=== PATIENT | female | born 1955 | race Caucasian/White ===

== ENCOUNTER → 2017-04-07 | Outpatient (CLI) | payer OTHER ==
[~2017-04-07] MED LIST: FAMO40TA61 PO; FLUT9.9S NAS
[2017-04-07 14:08] LABS: BLOOD UREA NITROGEN 16 mg/dL (7-18)
[2017-04-07 14:34] LABS: ASPARTATE AMINO TRANSFERASE 20 U/L (15-37); TOTAL IRON BINDING CAPACITY 307 mcg/dL (250-450); TRANSFERRIN 269 mg/dL (200-360)
[2017-04-08 14:25] LABS: PATH.CAST-FLAG NOT PRESENT; SPERM-FLAG NOT PRESENT; SRC-FLAG NOT PRESENT; XTAL-FLAG NOT PRESENT; YLC-FLAG NOT PRESENT
== END | disposition home or self-care (01) ==
LOC: LAB 13:40
PROVIDERS: ATTEND Nurse Practitioner Primary Care
DX: Z13.220 Encounter for screening for lipoid disorders (principal); R53.83 Other fatigue; E55.9 Vitamin D deficiency, unspecified; R01.1 Cardiac murmur, unspecified; R82.90 Unspecified abnormal findings in urine; R79.9 Abnormal finding of blood chemistry, unspecified
CPT/HCPCS: 36415; 80053; 80061; 81001; 82043; 82306; 82607; 82728; 82746; 83036; 83540; 83550; 84425; 84443; 84466; 85025

== ENCOUNTER 2017-05-20 16:59 | Emergency (ER) | payer OTHER ==
[~2017-05-20] VITALS: Ht 165.1 cm; Wt 69.1 kg
[2017-05-20 18:07] LABS: HEMATOCRIT 40.1 % (34.6-47.8); HEMOGLOBIN 13.4 g/dL (11.7-16.4); WHITE BLOOD COUNT 5.7 x10^3/uL (3.4-10)
[2017-05-20 18:18] LABS: BLOOD UREA NITROGEN 16 mg/dL (7-18)
[2017-05-20 18:23] LABS: IS PT STATUS REG ER OR PRE ER? YES
[2017-05-20 20:00] VITALS: BP 139/73
== END 2017-05-20 20:02 | disposition home or self-care (01) ==
LOC: ED 18:11
DX: J45.31 Mild persistent asthma with (acute) exacerbation (principal); K21.9 Gastro-esophageal reflux disease without esophagitis; Z88.5 Allergy status to narcotic agent; Z88.8 Allergy status to other drugs, medicaments and biological substances
CPT/HCPCS: 36415; 71010; 80048; 82040; 84484; 85025; 93005; 99285; J7512

== ENCOUNTER → 2017-11-11 | Outpatient (CLI) | payer OTHER ==
[2017-11-11 12:42] LABS: MICROSCOPIC AUTO
[2017-11-11 12:47] LABS: CULTURE INDICATED? NO
[2017-11-11 12:55] LABS: ALANINE AMINOTRANSFERASE 23 U/L (12-78); ALBUMIN 3.6 g/dL (3.4-5.0); ANION GAP 9 mmol/L (5-15); CALCIUM 8.2 mg/dL (8.5-10.1); CHLORIDE 106 mmol/L (98-107); CREATININE 0.86 mg/dL (0.55-1.02)
[2017-11-11 12:57] LABS: ALKALINE PHOSPHATASE 83 U/L (45-117); BILIRUBIN,TOTAL 0.3 mg/dL (0.2-1.0); TOTAL PROTEIN 7.7 g/dL (6.4-8.2)
== END | disposition home or self-care (01) ==
LOC: LAB 12:21
PROVIDERS: ATTEND Nurse Practitioner Primary Care
DX: E55.9 Vitamin D deficiency, unspecified (principal); R53.83 Other fatigue; R82.90 Unspecified abnormal findings in urine; R79.9 Abnormal finding of blood chemistry, unspecified; R01.1 Cardiac murmur, unspecified; E88.81 Metabolic syndrome and other insulin resistance; H91.90 Unspecified hearing loss, unspecified ear; F51.01 Primary insomnia; F06.4 Anxiety disorder due to known physiological condition; H61.23 Impacted cerumen, bilateral; Z79.899 Other long term (current) drug therapy
CPT/HCPCS: 36415; 80053; 81001; 82306; 83516

== ENCOUNTER → 2017-11-21 | Outpatient (CLI) | payer OTHER | END | disposition home or self-care (01) | LOC: CFH 12:36 | PROVIDERS: ATTEND Nurse Practitioner Primary Care | DX: Z12.31 Encounter for screening mammogram for malignant neoplasm of breast (principal); Z80.3 Family history of malignant neoplasm of breast | CPT/HCPCS: 77067 ==

== ENCOUNTER → 2018-04-10 | Outpatient (CLI) | payer OTHER | LOC: CFH 10:42 | PROVIDERS: ATTEND Nurse Practitioner Primary Care | DX: Z13.820 Encounter for screening for osteoporosis (principal); I35.1 Nonrheumatic aortic (valve) insufficiency; Z78.0 Asymptomatic menopausal state | CPT/HCPCS: 77080; 93306 ==

== ENCOUNTER → 2018-05-10 | Outpatient (CLI) | payer OTHER | END | disposition home or self-care (01) | LOC: RAD 10:53 | PROVIDERS: ATTEND Internal Medicine | DX: R79.9 Abnormal finding of blood chemistry, unspecified (principal); E83.52 Hypercalcemia; E78.2 Mixed hyperlipidemia; K21.9 Gastro-esophageal reflux disease without esophagitis; Z79.899 Other long term (current) drug therapy | CPT/HCPCS: 78070; A9500 ==

== ENCOUNTER → 2018-07-07 | Outpatient (CLI) | payer OTHER ==
[2018-07-07 10:27] LABS: ALBUMIN 3.7 g/dL (3.4-5.0); ANION GAP 7 mmol/L (5-15); CHLORIDE 107 mmol/L (98-107)
[2018-07-07 10:30] LABS: ALANINE AMINOTRANSFERASE 21 U/L (12-78); ALKALINE PHOSPHATASE 92 U/L (45-117); BILIRUBIN,TOTAL 0.4 mg/dL (0.2-1.0); CHOL/HDL RATIO 3.7; CHOLESTEROL, TOTAL 190 mg/dL (140-239); CREATININE 0.76 mg/dL (0.55-1.02); HDL CHOL % 27 % (28-40); HDL CHOLESTEROL (DIRECT) 52 mg/dL (40-60); LDL CHOLESTEROL,CALCULATED 109 mg/dL (54-169); LDL/HDL RATIO 2.1 (0.5-3.0); TOTAL PROTEIN 7.6 g/dL (6.4-8.2); TRIGLYCERIDES 147 mg/dL (50-200); VLDL CHOLESTEROL 29 mg/dL (0-25)
[2018-07-07 10:48] LABS: MICROSCOPIC INDICATED
[2018-07-07 10:59] LABS: CULTURE INDICATED? NO
[2018-07-07 11:18] LABS: HEMOGLOBIN A1C 5.6 % (4.2-6.3)
== END | disposition home or self-care (01) ==
LOC: LAB 09:39
PROVIDERS: ATTEND Internal Medicine
DX: Z00.01 Encounter for general adult medical examination with abnormal findings (principal); Z13.220 Encounter for screening for lipoid disorders; K21.9 Gastro-esophageal reflux disease without esophagitis; R53.83 Other fatigue; E55.9 Vitamin D deficiency, unspecified; R82.90 Unspecified abnormal findings in urine; R79.9 Abnormal finding of blood chemistry, unspecified; E88.81 Metabolic syndrome and other insulin resistance; E78.2 Mixed hyperlipidemia; R01.1 Cardiac murmur, unspecified; F06.4 Anxiety disorder due to known physiological condition; F51.01 Primary insomnia; Z79.899 Other long term (current) drug therapy
CPT/HCPCS: 36415; 80053; 80061; 81001; 82306; 83036; 83970; 84100

== ENCOUNTER 2018-08-23 20:23 | Emergency (ER) | payer OTHER ==
[~2018-08-23] VITALS: Ht 165.1 cm; Wt 65.9 kg
[2018-08-23] MEDS ORDERED: METOCLOPRAMIDE 5 MG/ML, 2ML ONE (20:53)
[2018-08-23] MEDS ORDERED: ONDANSETRON 2MG/ML, 2ML ONE (20:53)
[2018-08-23] MEDS ORDERED: FAMOTIDINE 20 MG/2 ML ONE (20:54)
[2018-08-23 20:57] LABS: BASOPHILS # (AUTO) 0.06 x10^3/uL (0-0.1); BASOPHILS % (AUTO) 1 % (0-1); EOSINOPHILS # (AUTO) 0.05 x10^3/uL (0-0.4); EOSINOPHILS % (AUTO) 1 % (1-7); LYMPHOCYTES # (AUTO) 1.96 x10^3/uL (1-3.4); LYMPHOCYTES % (AUTO) 33 % (22-44); MD NO; MEAN CORPUSCULAR HEMOGLOBIN 30.1 pg (27.0-34.8); MEAN CORPUSCULAR HGB CONC 33.2 g/dL (32.4-35.8); MEAN CORPUSCULAR VOLUME 90.8 fL (80-100); MEAN PLATELET VOLUME 7.3 fL (7.4-10.4); MONOCYTES # (AUTO) 0.26 x10^3/uL (0.2-0.8); MONOCYTES % (AUTO) 4 % (2-9); NEUTROPHILS # (AUTO) 3.59 x10^3/uL (1.8-6.8); NEUTROPHILS % (AUTO) 61 % (42-75); PLATELET COUNT 280 x10^3/uL (130-400); RED BLOOD COUNT 4.44 x10^6/uL (3.82-5.3); RED CELL DISTRIBUTION WIDTH 12.3 % (9.6-15.2)
[2018-08-23] MEDS ORDERED: ONDANSETRON 2MG/ML, 2ML IVPush ONE (21:00)
[2018-08-23] MEDS ORDERED: METOCLOPRAMIDE 5 MG/ML, 2ML IVPush ONE (21:00)
[2018-08-23] MEDS ORDERED: SODIUM CHLORIDE 0.9% 1,000ML IVBOLUS ONE (21:00)
[2018-08-23] MEDS ORDERED: FAMOTIDINE 20 MG/2 ML IVP ONE (21:00)
[2018-08-23 21:08] LABS: ALBUMIN 3.5 g/dL (3.4-5.0); ANION GAP 12 mmol/L (5-15); CALCIUM 8.3 mg/dL (8.5-10.1); CHLORIDE 110 mmol/L (98-107)
[2018-08-23 21:15] LABS: ALANINE AMINOTRANSFERASE 28 U/L (12-78); ALKALINE PHOSPHATASE 81 U/L (45-117); BILIRUBIN,TOTAL 0.3 mg/dL (0.2-1.0); CREATININE 0.82 mg/dL (0.55-1.02); TOTAL PROTEIN 7.4 g/dL (6.4-8.2); TROPONIN I < 0.015 ng/mL (0.000-0.045)
[2018-08-23] MEDS ORDERED: FENTANYL PF 100 MCG/2ML IVPush PRN (21:30)
[2018-08-23] MEDS ORDERED: FENTANYL PF 100 MCG/2ML ONE (21:51)
[2018-08-23] MEDS ORDERED: SODIUM CHLORIDE FLUSH 10ML SYR IVF ONE (22:00)
[2018-08-23 22:05] VITALS: BP 120/72
[2018-08-23 22:24] LABS: MICROSCOPIC AUTO
[2018-08-23 22:32] LABS: CULTURE INDICATED? NO
[2018-08-24] MEDS ORDERED: OMNIPAQUE 350 MG/ML, 100ML BOTTLE ONE (06:06)
== END 2018-08-23 22:56 | disposition home or self-care (01) ==
LOC: ED 20:33
DX: K29.20 Alcoholic gastritis without bleeding (principal); K21.9 Gastro-esophageal reflux disease without esophagitis; F41.1 Generalized anxiety disorder; F10.10 Alcohol abuse, uncomplicated; J45.909 Unspecified asthma, uncomplicated; Z88.8 Allergy status to other drugs, medicaments and biological substances; Z88.5 Allergy status to narcotic agent; Z88.6 Allergy status to analgesic agent; Y90.9 Presence of alcohol in blood, level not specified
CPT/HCPCS: 36415; 74177; 80053; 80307; 81001; 83690; 84484; 85025; 86677; 93005; 96374; 96375; 99284; J2405; J2765; J3010; J3490; J7030; Q9967

== ENCOUNTER → 2019-02-01 | Outpatient (CLI) | payer MEDICARE ==
[2019-02-01 10:08] LABS: BASOPHILS # (AUTO) 0.06 x10^3/uL (0-0.1); BASOPHILS % (AUTO) 1 % (0-1); EOSINOPHILS % (AUTO) 2 % (1-7); LYMPHOCYTES # (AUTO) 1.75 x10^3/uL (1-3.4); LYMPHOCYTES % (AUTO) 33 % (22-44); MD NO; MEAN CORPUSCULAR HEMOGLOBIN 29.7 pg (27.0-34.8); MEAN CORPUSCULAR HGB CONC 32.9 g/dL (32.4-35.8); MEAN CORPUSCULAR VOLUME 90.3 fL (80-100); MEAN PLATELET VOLUME 7.3 fL (7.4-10.4); MONOCYTES # (AUTO) 0.35 x10^3/uL (0.2-0.8); MONOCYTES % (AUTO) 7 % (2-9); NEUTROPHILS # (AUTO) 3.09 x10^3/uL (1.8-6.8); NEUTROPHILS % (AUTO) 58 % (42-75); PLATELET COUNT 311 x10^3/uL (130-400); RED BLOOD COUNT 4.49 x10^6/uL (3.82-5.3); RED CELL DISTRIBUTION WIDTH 12.4 % (9.6-15.2)
[2019-02-01 10:22] LABS: ALBUMIN 3.6 g/dL (3.4-5.0); ANION GAP 7 mmol/L (5-15); CHLORIDE 109 mmol/L (98-107); CHOLESTEROL, TOTAL 199 mg/dL (140-239); TRIGLYCERIDES 240 mg/dL (50-200); VLDL CHOLESTEROL 48 mg/dL (0-25)
[2019-02-01 10:47] LABS: ALANINE AMINOTRANSFERASE 22 U/L (12-78); ALKALINE PHOSPHATASE 93 U/L (45-117); BILIRUBIN,TOTAL 0.3 mg/dL (0.2-1.0); CHOL/HDL RATIO 4.2; CREATININE 0.88 mg/dL (0.55-1.02); FREE T4 (FREE THYROXINE) 1.23 ng/dL (0.76-1.46); HDL CHOL % 24 % (28-40); HDL CHOLESTEROL (DIRECT) 47 mg/dL (40-60); LDL CHOLESTEROL,CALCULATED 104 mg/dL (54-169); LDL/HDL RATIO 2.2 (0.5-3.0); TOTAL PROTEIN 7.5 g/dL (6.4-8.2)
[2019-02-01 10:48] LABS: FOLATE LEVEL > 20.0 ng/mL (3.1-17.5)
[2019-02-01 11:16] LABS: MICROSCOPIC AUTO
[2019-02-01 11:21] LABS: CULTURE INDICATED? NO
[2019-02-01 12:05] LABS: HEMOGLOBIN A1C 5.7 % (4.2-6.3)
== END | disposition home or self-care (01) ==
LOC: LAB 09:51
PROVIDERS: ATTEND Nurse Practitioner Primary Care
DX: Z13.220 Encounter for screening for lipoid disorders (principal); R53.83 Other fatigue; E55.9 Vitamin D deficiency, unspecified; R79.9 Abnormal finding of blood chemistry, unspecified; E88.81 Metabolic syndrome and other insulin resistance; E78.2 Mixed hyperlipidemia; R01.1 Cardiac murmur, unspecified; F06.4 Anxiety disorder due to known physiological condition; F51.01 Primary insomnia; K21.9 Gastro-esophageal reflux disease without esophagitis; Z79.899 Other long term (current) drug therapy
CPT/HCPCS: 36415; 80053; 80061; 81001; 82306; 82607; 82746; 83036; 84207; 84425; 84439; 84443; 84481; 85025

== ENCOUNTER 2019-02-10 15:01 | Emergency (ER) | payer MEDICARE ==
[~2019-02-10] VITALS: Ht 165.1 cm; Wt 68.0 kg
[2019-02-10 15:03] VITALS: BP 150/78
[2019-02-10 15:42] LABS: MICROSCOPIC INDICATED
--- NOTE | 2019-02-10 15:50 | NUR ---
RIGHT SIDED ABDOMINAL PAIN FOR FIVE DAYS, DULL IN NATURE WITH INTERMITENT SHARP PAIN.
[2019-02-10 15:57] LABS: CULTURE INDICATED? NO
[2019-02-10 16:11] LABS: BASOPHILS # (AUTO) 0.04 x10^3/uL (0-0.1); BASOPHILS % (AUTO) 1 % (0-1); EOSINOPHILS # (AUTO) 0.15 x10^3/uL (0-0.4); EOSINOPHILS % (AUTO) 3 % (1-7); LYMPHOCYTES # (AUTO) 1.74 x10^3/uL (1-3.4); LYMPHOCYTES % (AUTO) 36 % (22-44); MD NO; MEAN CORPUSCULAR HEMOGLOBIN 30.1 pg (27.0-34.8); MEAN CORPUSCULAR HGB CONC 33.4 g/dL (32.4-35.8); MEAN CORPUSCULAR VOLUME 90.3 fL (80-100); MEAN PLATELET VOLUME 7.7 fL (7.4-10.4); MONOCYTES # (AUTO) 0.35 x10^3/uL (0.2-0.8); MONOCYTES % (AUTO) 7 % (2-9); NEUTROPHILS # (AUTO) 2.59 x10^3/uL (1.8-6.8); NEUTROPHILS % (AUTO) 53 % (42-75); PLATELET COUNT 255 x10^3/uL (130-400); RED BLOOD COUNT 4.36 x10^6/uL (3.82-5.3); RED CELL DISTRIBUTION WIDTH 12.7 % (9.6-15.2)
[2019-02-10 16:15] LABS: ALANINE AMINOTRANSFERASE 20 U/L (12-78); ALBUMIN 3.5 g/dL (3.4-5.0); ANION GAP 6 mmol/L (5-15); CALCIUM 8.9 mg/dL (8.5-10.1); CHLORIDE 113 mmol/L (98-107)
[2019-02-10 16:17] LABS: ALKALINE PHOSPHATASE 88 U/L (45-117); BILIRUBIN,TOTAL 0.4 mg/dL (0.2-1.0)
--- NOTE | 2019-02-10 16:45 | NUR ---
VISTING WITH , NO DISTRESS
--- NOTE | 2019-02-10 17:50 | NUR ---
AMBULATED TO DISCHARGE WINDOW, STEADY GAIT
== END 2019-02-10 17:52 | disposition home or self-care (01) ==
LOC: ED 16:19
DX: R10.11 Right upper quadrant pain (principal); K21.9 Gastro-esophageal reflux disease without esophagitis; J45.909 Unspecified asthma, uncomplicated; Z90.49 Acquired absence of other specified parts of digestive tract
CPT/HCPCS: 36415; 74177; 80053; 81001; 83690; 85025; 93005; 99284

== ENCOUNTER 2019-07-25 19:51 | Observation (INO) | payer MEDICARE ==
[~2019-07-25] VITALS: Ht 165.1 cm; Wt 63.8 kg
[2019-07-25 20:26] LABS: BASOPHILS # (AUTO) 0.05 x10^3/uL (0-0.1); BASOPHILS % (AUTO) 1 % (0-1); EOSINOPHILS # (AUTO) 0.19 x10^3/uL (0-0.4); EOSINOPHILS % (AUTO) 2 % (1-7); LYMPHOCYTES # (AUTO) 3.59 x10^3/uL (1-3.4); LYMPHOCYTES % (AUTO) 41 % (22-44); MD NO; MEAN CORPUSCULAR HEMOGLOBIN 30.5 pg (27.0-34.8); MEAN CORPUSCULAR HGB CONC 33.1 g/dL (32.4-35.8); MEAN CORPUSCULAR VOLUME 92.3 fL (80-100); MEAN PLATELET VOLUME 7.2 fL (7.4-10.4); MONOCYTES # (AUTO) 0.63 x10^3/uL (0.2-0.8); MONOCYTES % (AUTO) 7 % (2-9); NEUTROPHILS # (AUTO) 4.36 x10^3/uL (1.8-6.8); NEUTROPHILS % (AUTO) 49 % (42-75); PLATELET COUNT 331 x10^3/uL (130-400); RED BLOOD COUNT 4.45 x10^6/uL (3.82-5.3); RED CELL DISTRIBUTION WIDTH 11.9 % (9.6-15.2)
[2019-07-25 20:34] LABS: ALBUMIN 3.4 g/dL (3.4-5.0); ANION GAP 7 mmol/L (5-15); CALCIUM 9.2 mg/dL (8.5-10.1); CHLORIDE 103 mmol/L (98-107); CREATININE 1.01 mg/dL (0.55-1.02)
[2019-07-25] MEDS ORDERED: ALBU8.5H8 INH (20:35)
[2019-07-25] MEDS ORDERED: SUCR1TAB33 PO (20:35)
[2019-07-25 20:39] LABS: TROPONIN I < 0.015 ng/mL (0.000-0.045)
[2019-07-25] MEDS ORDERED: MAALOX/HYOSCYAMINE/LIDOCAINE 45 ML BTL PO ONE (21:30)
[2019-07-25] MEDS ORDERED: ACETAMINOPHEN 500 MG TABLET PO ONE (21:30)
[2019-07-25] MEDS ORDERED: MAALOX/HYOSCYAMINE/LIDOCAINE 45 ML BTL ONE (21:38)
[2019-07-25 21:49] LABS: ALBUMIN 3.4 g/dL (3.4-5.0); BILIRUBIN, DIRECT 0.1 mg/dL (0.1-0.2)
[2019-07-25 21:51] LABS: BILIRUBIN,INDIRECT 0.2 mg/dL (0.0-2.0); BILIRUBIN,TOTAL 0.3 mg/dL (0.2-1.0)
--- NOTE | 2019-07-25 22:02 | NUR ---
PT ABLE TO PROVIDE URINE SAMPLE. URINE SENT TO LAB. IV STARTED, PT ON CARDIAC AND VITALS MONITORS
--- NOTE | 2019-07-25 22:05 | NUR ---
PT TO CT
[2019-07-25] MEDS ORDERED: OMNIPAQUE 350 MG/ML, 100ML BOTTLE ONE (22:16)
[2019-07-25 22:39] LABS: MICROSCOPIC INDICATED
[2019-07-25 23:11] LABS: CULTURE INDICATED? NO
--- NOTE | 2019-07-25 23:55 | NUR ---
REPORT TO ROCIO ARMSTRONG
[2019-07-26] VITALS (7 sets, daily range): BP systolic 104–146; BP diastolic 57–79
[2019-07-26] MEDS ORDERED: OMEG-133 PO (00:45)
[2019-07-26] MEDS ORDERED: MAGN100C2 PO (00:47)
[2019-07-26] MEDS ORDERED: ASCO500C10 PO (00:47)
[2019-07-26] MEDS ORDERED: MAGN100C2 PEG (01:20)
[2019-07-26] MEDS ORDERED: MULT-658 PO (01:20)
[2019-07-26] MEDS ORDERED: CRAN1CAP12 PO (01:20)
[2019-07-26] MEDS ORDERED: ENALAPRILAT 1.25 MG/ML, 2ML IVPush PRN (01:30)
[2019-07-26] MEDS ORDERED: DOCUSATE 100 MG CAPSULE PO PRN (01:30)
[2019-07-26] MEDS ORDERED: ONDANSETRON 2MG/ML, 2ML IVPush PRN (01:30)
[2019-07-26] MEDS ORDERED: ALBUTEROL SULFATE INH PRN (01:30)
[2019-07-26] MEDS: TEMAZEPAM 15 MG CAPSULE PO PRN ×2 (01:34→22:35)
[2019-07-26] MEDS: LIDODERM 5% PATCH TD PRN (01:36)
[2019-07-26] MEDS: ENOXAPARIN 40 MG/0.4 ML SQ SCH (01:49)
[2019-07-26] MEDS ORDERED: NITROGLYCERIN 0.4 MG BOTTLE (25 TABS) SL PRN (02:00)
[2019-07-26 04:47] LABS: TROPONIN I < 0.015 ng/mL (0.000-0.045)
[2019-07-26] MEDS: MAGNESIUM OXIDE 400 MG TABLET PO SCH (08:28)
[2019-07-26] MEDS: ACETAMINOPHEN 325 MG TABLET PO PRN ×2 (08:28→12:51)
[2019-07-26] MEDS: FLUTICASONE NASAL SPRAY 16GM NAS SCH (08:28)
[2019-07-26] MEDS: ASCORBIC ACID 500 MG TABLET PO SCH (08:29)
[2019-07-26] MEDS: OMEGA-3/FISH OIL CAPSULE PO SCH (08:29)
[2019-07-26] MEDS ORDERED: SUCRALFATE 1 GM TABLET PO SCH (09:00)
[2019-07-26] MEDS ORDERED: REGADENOSON 0.4 MG/5 ML SYRINGE ONE (09:01)
[2019-07-26 10:40] LABS: TROPONIN I < 0.015 ng/mL (0.000-0.045)
[2019-07-26 15:16] LABS: ANION GAP 7 mmol/L (5-15); CALCIUM 9.2 mg/dL (8.5-10.1); CHLORIDE 109 mmol/L (98-107)
[2019-07-26] MEDS: SUCRALFATE 1 GM TABLET PO SCH (22:35)
[2019-07-26] MEDS: BENZONATATE 100 MG CAPSULE PO PRN (22:42)
[2019-07-27 01:57] VITALS: BP 102/67
[2019-07-27] MEDS: ENOXAPARIN 40 MG/0.4 ML SQ SCH (02:36)
[2019-07-27 04:07] LABS: BASOPHILS # (AUTO) 0.07 x10^3/uL (0-0.1); BASOPHILS % (AUTO) 1 % (0-1); EOSINOPHILS % (AUTO) 4 % (1-7); LYMPHOCYTES # (AUTO) 2.32 x10^3/uL (1-3.4); LYMPHOCYTES % (AUTO) 34 % (22-44); MD NO; MEAN CORPUSCULAR HEMOGLOBIN 30.4 pg (27.0-34.8); MEAN CORPUSCULAR HGB CONC 32.6 g/dL (32.4-35.8); MEAN CORPUSCULAR VOLUME 93.2 fL (80-100); MEAN PLATELET VOLUME 7.1 fL (7.4-10.4); MONOCYTES # (AUTO) 0.47 x10^3/uL (0.2-0.8); MONOCYTES % (AUTO) 7 % (2-9); NEUTROPHILS # (AUTO) 3.73 x10^3/uL (1.8-6.8); NEUTROPHILS % (AUTO) 54 % (42-75); PLATELET COUNT 336 x10^3/uL (130-400); RED BLOOD COUNT 4.46 x10^6/uL (3.82-5.3); RED CELL DISTRIBUTION WIDTH 12.2 % (9.6-15.2)
[2019-07-27 04:08] LABS: ANION GAP 5 mmol/L (5-15); CALCIUM 8.8 mg/dL (8.5-10.1); CHLORIDE 107 mmol/L (98-107); CREATININE 0.85 mg/dL (0.55-1.02)
[2019-07-27] MEDS ORDERED: FLU VACC QS2019-20 36MOS UP/PF 0.5 ML IM-VACC ONE (07:30)
[2019-07-27] MEDS: MAGNESIUM OXIDE 400 MG TABLET PO SCH (07:50)
[2019-07-27] MEDS: SUCRALFATE 1 GM TABLET PO SCH ×4 (07:50→19:51)
[2019-07-27] MEDS: ACETAMINOPHEN 325 MG TABLET PO PRN ×2 (07:50→17:19)
[2019-07-27] MEDS: ASCORBIC ACID 500 MG TABLET PO SCH (07:50)
[2019-07-27] MEDS: OMEGA-3/FISH OIL CAPSULE PO SCH (07:50)
[2019-07-27] MEDS: FLUTICASONE NASAL SPRAY 16GM NAS SCH (07:52)
[2019-07-27] MEDS: BENZONATATE 100 MG CAPSULE PO PRN ×2 (08:08→17:18)
[2019-07-27 08:23] VITALS: BP 97/67
[2019-07-27] MEDS: LIDODERM 5% PATCH TD PRN (11:27)
[2019-07-27] MEDS ORDERED: SODIUM CHLORIDE 0.9% 1,000 ML IV SCH (13:30)
[2019-07-27] MEDS: SODIUM CHLORIDE 0.9% 1,000 ML IV SCH ×2 (13:34→22:21)
[2019-07-27 14:21] VITALS: BP 121/78
[2019-07-27 18:51] VITALS: BP 120/74
[2019-07-27] MEDS: TEMAZEPAM 15 MG CAPSULE PO PRN (21:40)
[2019-07-28] MEDS: ENOXAPARIN 40 MG/0.4 ML SQ SCH (01:13)
[2019-07-28 01:58] VITALS: BP 137/82
[2019-07-28 05:25] LABS: BASOPHILS # (AUTO) 0.04 x10^3/uL (0-0.1); BASOPHILS % (AUTO) 1 % (0-1); EOSINOPHILS # (AUTO) 0.35 x10^3/uL (0-0.4); EOSINOPHILS % (AUTO) 7 % (1-7); LYMPHOCYTES # (AUTO) 1.63 x10^3/uL (1-3.4); LYMPHOCYTES % (AUTO) 31 % (22-44); MD NO; MEAN CORPUSCULAR HEMOGLOBIN 30.3 pg (27.0-34.8); MEAN CORPUSCULAR HGB CONC 32.6 g/dL (32.4-35.8); MEAN CORPUSCULAR VOLUME 92.9 fL (80-100); MEAN PLATELET VOLUME 7.1 fL (7.4-10.4); MONOCYTES % (AUTO) 8 % (2-9); NEUTROPHILS # (AUTO) 2.92 x10^3/uL (1.8-6.8); NEUTROPHILS % (AUTO) 55 % (42-75); PLATELET COUNT 328 x10^3/uL (130-400); RED BLOOD COUNT 4.23 x10^6/uL (3.82-5.3); RED CELL DISTRIBUTION WIDTH 12.1 % (9.6-15.2)
[2019-07-28 05:27] LABS: ANION GAP 5 mmol/L (5-15); CALCIUM 8.2 mg/dL (8.5-10.1); CHLORIDE 113 mmol/L (98-107); CREATININE 0.73 mg/dL (0.55-1.02)
[2019-07-28 08:39] VITALS: BP 125/75
[2019-07-28] MEDS: SODIUM CHLORIDE 0.9% 1,000 ML IV SCH ×2 (10:18→14:27)
[2019-07-28] MEDS: OMEGA-3/FISH OIL CAPSULE PO SCH (10:19)
[2019-07-28] MEDS: FLUTICASONE NASAL SPRAY 16GM NAS SCH (10:19)
[2019-07-28] MEDS: ASCORBIC ACID 500 MG TABLET PO SCH (10:19)
[2019-07-28] MEDS: SUCRALFATE 1 GM TABLET PO SCH ×2 (10:19→11:00)
[2019-07-28] MEDS: MAGNESIUM OXIDE 400 MG TABLET PO SCH (10:19)
[2019-07-28] MEDS: BENZONATATE 100 MG CAPSULE PO PRN (10:24)
[2019-07-28 12:25] VITALS: BP 126/78
[2019-07-28] MEDS ORDERED: SUCR1TAB33 PO (14:46)
[2019-07-28] MEDS ORDERED: LIDO700A20 TD (14:46)
== END 2019-07-28 16:23 | disposition home or self-care (01) ==
LOC: ED 20:49 → INTOOBSV 23:12 → EDIP 23:12 → UNDOADMOB 23:12 → 5SO 07-26 00:17 → EDIP 07-26 00:17 → 5SO 07-26 01:17 → 3N 07-27 17:58
PROVIDERS: ADMIT Internal Medicine; ATTEND Internal Medicine
DX: R07.89 Other chest pain (principal); R55 Syncope and collapse; R10.13 Epigastric pain; K21.9 Gastro-esophageal reflux disease without esophagitis; J45.909 Unspecified asthma, uncomplicated; K76.89 Other specified diseases of liver; F41.1 Generalized anxiety disorder
CPT/HCPCS: 36415; 71046; 74177; 74220; 78452; 80048; 80076; 81001; 82040; 83690; 83735; 84100; 84484; 85025; 90471; 90686; 93005; 93017; 93306; 93880; 96360; 96361; 96372; 99284; A9502; C9898; G0378; J1650; J2785; J7030; Q9967

== ENCOUNTER → 2020-03-25 | Outpatient (CLI) | payer MEDICARE ==
[~2020-03-25] MED LIST changes: +ALBU8.5H8 INH; +ASCO500C10 PO; +CRAN1CAP12 PO; +LIDO700A20 TD; +MAGN100C2 PEG; +MAGN100C2 PO; +MULT-658 PO; +OMEG-133 PO; +SUCR1TAB33 PO
[2020-03-25 12:54] LABS: ALBUMIN 3.6 g/dL (3.4-5.0); ANION GAP 5 mmol/L (5-15); CALCIUM 8.8 mg/dL (8.5-10.1); CHLORIDE 109 mmol/L (98-107)
[2020-03-25 12:55] LABS: MICROSCOPIC AUTO
[2020-03-25 13:20] LABS: BASOPHILS # (AUTO) 0.03 x10^3/uL (0-0.1); BASOPHILS % (AUTO) 1 % (0-1); EOSINOPHILS # (AUTO) 0.18 x10^3/uL (0-0.4); EOSINOPHILS % (AUTO) 4 % (1-7); LYMPHOCYTES # (AUTO) 1.87 x10^3/uL (1-3.4); LYMPHOCYTES % (AUTO) 39 % (22-44); MD NO; MEAN CORPUSCULAR HEMOGLOBIN 30.8 pg (27.0-34.8); MEAN CORPUSCULAR HGB CONC 33.3 g/dL (32.4-35.8); MEAN CORPUSCULAR VOLUME 92.6 fL (80-100); MEAN PLATELET VOLUME 8.1 fL (7.4-10.4); MONOCYTES # (AUTO) 0.27 x10^3/uL (0.2-0.8); MONOCYTES % (AUTO) 6 % (2-9); NEUTROPHILS # (AUTO) 2.43 x10^3/uL (1.8-6.8); NEUTROPHILS % (AUTO) 51 % (42-75); PLATELET COUNT 249 x10^3/uL (130-400); RED BLOOD COUNT 4.47 x10^6/uL (3.82-5.3); RED CELL DISTRIBUTION WIDTH 12.4 % (9.6-15.2)
[2020-03-25 13:21] LABS: ALANINE AMINOTRANSFERASE 20 U/L (12-78); ALKALINE PHOSPHATASE 90 U/L (45-117); BILIRUBIN,TOTAL 0.4 mg/dL (0.2-1.0); CHOL/HDL RATIO 4.1; CHOLESTEROL, TOTAL 202 mg/dL (140-239); CREATININE 0.94 mg/dL (0.55-1.02); HDL CHOL % 24 % (28-40); HDL CHOLESTEROL (DIRECT) 49 mg/dL (40-60); LDL CHOLESTEROL,CALCULATED 111 mg/dL (54-169); TOTAL PROTEIN 7.4 g/dL (6.4-8.2); TRIGLYCERIDES 210 mg/dL (50-200); VLDL CHOLESTEROL 42 mg/dL (0-25)
[2020-03-25 13:22] LABS: FREE T4 (FREE THYROXINE) 1.18 ng/dL (0.76-1.46); LDL/HDL RATIO 2.3 (0.5-3.0)
[2020-03-25 13:43] LABS: FOLATE LEVEL > 20.0 ng/mL (3.1-17.5)
== END | disposition home or self-care (01) ==
LOC: CFH 09:34
PROVIDERS: ATTEND Nurse Practitioner Primary Care
DX: Z13.220 Encounter for screening for lipoid disorders (principal); R53.83 Other fatigue; E55.9 Vitamin D deficiency, unspecified; R79.9 Abnormal finding of blood chemistry, unspecified; E88.81 Metabolic syndrome and other insulin resistance; E78.2 Mixed hyperlipidemia; R01.1 Cardiac murmur, unspecified; K21.9 Gastro-esophageal reflux disease without esophagitis; F51.01 Primary insomnia; F06.4 Anxiety disorder due to known physiological condition; Z79.899 Other long term (current) drug therapy
CPT/HCPCS: 36415; 80053; 80061; 81001; 82306; 82607; 82746; 83036; 83970; 84100; 84207; 84425; 84439; 84443; 84481; 85025

== ENCOUNTER 2021-02-25 14:55 | Outpatient (CLI) | payer MEDICARE ==
[~2021-02-25 14:55] MED LIST changes: +OMNIPAQUE 350 MG/ML, 100ML BOTTLE ONE
== END 2021-02-25 23:59 | disposition home or self-care (01) ==
LOC: RAD 14:55
PROVIDERS: ATTEND Family Medicine
DX: K57.30 Diverticulosis of large intestine without perforation or abscess without bleeding (principal); K76.89 Other specified diseases of liver; R10.32 Left lower quadrant pain; M51.36 Other intervertebral disc degeneration, lumbar region
CPT/HCPCS: 74177; Q9967